=== PATIENT | female | born 1955 | race Caucasian/White ===

== ENCOUNTER 2016-03-29 07:59 | Emergency (ER) | payer OTHER, BC ==
[~2016-03-29] VITALS: Ht 165.1 cm; Wt 61.4 kg
[~2016-03-29 07:59] MED LIST: ACET-1256 PO; PHEN-622 PO; [UNRECOGNIZED DRUG - CODE] PO
[2016-03-29 08:02] VITALS: TEMP 36.8; Ht 165.1 cm; Wt 61.4 kg
[2016-03-29] MEDS ORDERED: IBUPROFEN 600 MG TAB PO STA (08:09)
[2016-03-29] MEDS ORDERED: OXYCODONE/ACETAMINOPHEN 5-325 TAB PO STA (08:09)
--- NOTE | 2016-03-29 08:38 | DIAGNOSTIC IMAGING REPORT ---
LEFT WRIST MIN 3 VIEWS ROUTINE CLINICAL HISTORY: Left wrist pain following fall. COMPARISON: None FINDINGS: No acute fracture the distal left radius or ulna is identified. Carpal bones are intact. There is a lucency with cortical irregularity of the base of the left fifth metacarpal. IMPRESSION: Possible mildly displaced acute fracture within the base of the left fifth metacarpal with intra-articular extension. Electronically signed by: Trav Sanchez M.D. 03/29/2016 8:36 AM Dictated Date/Time: 03/29/2016 8:28 AM
--- NOTE | 2016-03-29 08:43 | EMERGENCY ROOM VISIT NOTE ---
History Report prepared by Lorie: Jelena Jacobson Under the Supervision of: Dr. Jhony Stark M.D. First contact with patient: 08:04 Chief Complaint: WRIST PAIN Stated Complaint: FELL, LEFT WRIST PAIN History of Present Illness The patient is a 60 year old female who presents to the Emergency Room with complaints increased pain to her left wrist since suffering a fall at 0900 yesterday morning. Currently, she rates her discomfort as a 5/10, which worsens with movement of her 1st, 2nd and 3rd fingers, and she is unable to grasp/make a fist secondary to increased pain. She has taken Tylenol without relief. At the time of onset of the fall, the patient states that she tripped and fell down a few steps, injuring her left wrist. She denies feeling lightheaded, dizzy , or developing chest pain prior to the fall, and she did not hit her head, lose consciousness, or injure her neck, back, chest, abdomen, pelvis or other extremities during the episode. Source of History: patient Onset: 0900 yesterday morning Position: wrist (left) Symptom Intensity: 5/10 Timing: other (increased) Modifying Factors (Worsening): movement Modifying Factors (Relieving): other (No relief with Tylenol) Associated Symptoms: No LOC, No SOB, No chest pain, No neck pain Note: Patient denies other injuries secondary to the fall. Review of Systems See HPI for pertinent positives & negatives. A total of 10 systems reviewed and were otherwise negative. Past Medical & Surgical Medical Problems: (1) Back pain (2) GI bleed (3) UTI (urinary tract infection) Surgical Problems: (1) S/P hysterectomy Social History Smoking Status: Current Every Day Smoker Marital Status: Housing Status: lives with significant other Occupation Status: disabled Current/Historical Medications Scheduled PRN Acetaminophen (Tylenol), 1,000 MG PO Q6 PRN for Headache or Pain Oxycodone/Acetaminophen 5MG/325MG (Percocet 5MG/325MG), 1-2 TAB PO Q4H PRN for Pain Allergies Coded Allergies: No Known Allergies (Unverified , 03/29/16) Physical Exam Vital Signs Date Time Temp Pulse Resp B/P Pulse Ox O2 Delivery O2 Flow Rate FiO2 03/29/16 09:04 80 16 124/74 95 03/29/16 08:02 36.8 85 18 135/79 95 Room Air Physical Exam GENERAL: Patient is a healthy-appearing well-nourished 60 year old female. HEAD: Normocephalic atraumatic EYES: Ocular movements intact pupils equal and react to light OROPHARYNX mucous membranes are moist no exudates present no erythema or edema present NECK: Supple no nuchal rigidity CHEST: Good equal expansion LUNGS: Clear and equal to auscultation CARDIAC: Normal S1 and S2 ABDOMEN: Soft nontender no guarding BACK: No CVA tenderness EXTREMITIES: Pain with movement of the right 1st, 2nd and 3rd fingers. There is edema present at the 3rd, 4th and 5th metacarpal. NEURO: Patient is following commands is answering questions appropriately. Alert and oriented x3 Cranial Nerves 2-12 grossly intact Medical Decision & Procedures ER Provider Diagnostic Interpretation: X-ray results as stated below per interpretation by me and the radiologist: LEFT WRIST MIN 3 VIEWS ROUTINE CLINICAL HISTORY: Left wrist pain following fall. COMPARISON: None FINDINGS: No acute fracture the distal left radius or ulna is identified. Carpal bones are intact. There is a lucency with cortical irregularity of the base of the left fifth metacarpal. IMPRESSION: Possible mildly displaced acute fracture within the base of the left fifth metacarpal with intra-articular extension. Electronically signed by: Trav Sanchez M.D. 03/29/2016 8:36 AM Dictated Date/Time: 03/29/2016 8:28 AM Medications Administered Medications (Trade) Dose Ordered Sig/Lynn Route Start Time Stop Time Status Last Admin Dose Admin Ibuprofen (Motrin Tab) 600 mg NOW STAT PO 03/29/16 08:09 03/29/16 08:15 DC 03/29/16 08:15 600 MG Oxycodone/ Acetaminophen (Percocet 5-325mg Tab) 2 tab Q4H STAT PO 03/29/16 08:09 03/29/16 08:15 DC 03/29/16 08:16 2 TAB ED Course 0807: Past medical records reviewed. The patient was evaluated in room B4. A complete history and physical examination was performed. 0809: Percocet 5-325 mg 2 tabs PO and Ibuprofen 600 mg PO were ordered. 0900: Upon reevaluation, the patient was doing well and was feeling improved after receiving the medication. I updated her on the results of her radiology reports. She will follow up with orthopedics as an outpatient. She verbalized her understanding and agreement with the treatment plan, and she is now ready for disposition. Medical Decision Differential diagnosis: Etiologies such as fracture, dislocation, neurovascular compromise, compartment syndrome, soft tissue injury, as well as others were entertained. This is a 60-year-old female who presents emergency department complaining of hand pain. The fifth medical carpal on the hand is swollen. She also has a fracture at this point. For this reason the patient was placed in a splint. The patient was given ibuprofen and Percocet with strict instructions to follow- up with orthopedics. Patient was in agreement with the treatment plan. Impression Primary Impression: Fracture of fifth metacarpal bone Scribe Attestation The scribe's documentation has been prepared under my direction and personally reviewed by me in its entirety. I confirm that the note above accurately reflects all work, treatment, procedures, and medical decision making performed by me. Departure Information Dispostion Home / Self-Care Prescriptions Oxycodone/Acetaminophen 5MG/325MG (PERCOCET 5MG/325MG) Tab 1-2 TAB PO Q4H Y for Pain, #14 TAB Prov: Jhony Stark MD 03/29/16 Referrals No Doctor, Assigned (PCP) Forms HOME CARE DOCUMENTATION FORM, IMPORTANT VISIT INFORMATION, WORK / SCHOOL INSTRUCTIONS Patient Instructions ED Fx Hand Closed, ED [facility], [facility] Additional Instructions Follow-up with Dr. Bowser's office You received narcotic or benzodiazepene medication while in the emergency room today. Do not drive, operate heavy machinery, or drink alcohol under the influence of this medication. Take 600 mg Ibuprofen every 6 hours Take Percocet for breakthrough pain You have been examined and treated today on an emergency basis only. This is not a substitute for, or an effort to provide, complete comprehensive medical care. It is impossible to recognize and treat all injuries or illnesses in a single emergency department visit. It is therefore important that you follow up closely with your PCP. Call as soon as possible for an appointment. Thank you for your time and consideration. I look forward to speaking with you again soon. Please don't hesitate to call us if you have any questions. Problem Qualifiers Primary Impression: Fracture of fifth metacarpal bone Encounter type: initial encounter Fracture type: closed Metacarpal location : base Fracture alignment: nondisplaced Laterality: left Qualified Codes: S62.347A - Nondisplaced fracture of base of fifth metacarpal bone. left hand, initial encounter for closed fracture
[2016-03-29] MEDS ORDERED: OXYC-57 PO (08:45)
[2016-03-29 09:04] VITALS: BP 124/74; PULSE 80; O2SAT 95
== END 2016-03-29 09:04 | disposition home or self-care (01) ==
LOC: C.EDB 08:00
DX: S62.317A Displaced fracture of base of fifth metacarpal bone, left hand, initial encounter for closed fracture (principal); W10.9XXA Fall (on) (from) unspecified stairs and steps, initial encounter; F17.210 Nicotine dependence, cigarettes, uncomplicated